=== PATIENT | male | born 1955 | race Native Hawaiian/Other Pacific Islander ===

== ENCOUNTER 2017-08-29 18:20 | Inpatient (IN) | payer MEDICARE, BC ==
[~2017-08-29] VITALS: Ht 190.5 cm; Wt 112.6 kg
[~2017-08-29 18:20] MED LIST: ANTACID650 MG PO; BAYER CHEWABLE81 MG PO; CARDIZEM CD240 MG PO; CARTIA XT240 M1; CARVEDILOL6.25 MG PO; CEFDINIR300 MG; COUMADIN 5 MG TA5 M1; COUMADIN 5 MG TA5 M1 PO; DILTIAZEM IV; DIOVAN 80 MG TA80 M1 PO; ENOXAPARIN150 MG/1 M SUBQ; HYDROXYZINE HCL50 MG; IMDUR 30 MG TAB30 M1 PO; LASIX 40 MG TAB40 M2; LASIX 40 MG TAB40 MG PO; LEVEMIR SUBQ; NITROGLYCERIN0.4 MG SL; NORCO 5-325 TA1 EACH; NORVASC 5 MG TAB5 MG PO; NOVOLOG100 UNIT/1 SUBQ; PRED FORTE 1% EY5 M1; REMERON15 MG PO; RENVELA800 MG PO
[2017-08-29 18:23] VITALS: BP 102/63
[2017-08-29] MEDS ORDERED: TOPROL XL100 MG PO (18:33)
--- NOTE | 2017-08-29 18:37 | NUR ---
PT STATES THAT WE NEED TO GET UPDATED MEDICATION LIST FROM FAMILY ONCE THEY ARRIVE.
[2017-08-29 19:47] LABS: ABSOLUTE BASOPHILS 0.1 thou/uL (0.0-0.2); ABSOLUTE EOSINOPHILS 0.2 thou/uL (0.0-0.7); ABSOLUTE MONOCYTES 0.3 thou/uL (0.0-1.2); ABSOLUTE NEUTROPHILS 2.2 thou/uL (1.6-8.1); BASOPHILS 1.5 %; HEMOGLOBIN 7.4 gm/dL (14.0-18.0); LYMPHOCYTES 27.2 %; MCH 35.1 pg (26.0-34.0); MCHC 33.7 g/dL (28.0-37.0); MCV 104.2 fL (80.0-100.0); MONOCYTES 7.8 %; MPV 10.7 fl. (7.2-11.1); NUCLEATED RBCS 0 /100WBC; POLYS 58.5 %; RBC 2.11 mil/uL (4.50-6.00); RDW-CV 17.6 % (10.5-14.5); WBC 3.8 thou/uL (4.0-11.0)
[2017-08-29 19:50] LABS: PLATELET COUNT* 36 thou/uL (150-400)
[2017-08-29 19:52] LABS: ANION GAP 14 mmol/L (7-16); BUN 49 mg/dL (7-18); CALCIUM 9.4 mg/dL (8.5-10.1); CHLORIDE 93 mmol/L (98-107); CO2 25 mmol/L (21-32); CREATININE 7.8 mg/dL (0.6-1.3); GLUCOSE 107 mg/dL (70-99); POTASSIUM 4.8 mmol/L (3.5-5.1); SODIUM 132 mmol/L (136-145)
[2017-08-29 19:55] LABS: ALBUMIN 3.3 g/dL (3.4-5.0); SGOT 12 U/L (15-37)
[2017-08-29 20:15] LABS: HYPOCHROMASIA 1+; INR 1.4; PLATELET ESTIMATE DECREASED; PROTIME 13.8 Seconds (9.20-11.50)
[2017-08-29 20:17] LABS: ANISOCYTOSIS 1+
[2017-08-29] MEDS ORDERED: LINEZOLID600 MG PO (20:32)
[2017-08-29] MEDS ORDERED: CARTIA XT120 M1 PO (20:32)
[2017-08-29] MEDS ORDERED: PREDNISONE 10 M10 MG PO (20:32)
[2017-08-29] MEDS ORDERED: ELIQUIS2.5 MG PO (20:33)
[2017-08-29 20:36] LABS: ALKALINE PHOSPHATASE 172 U/L (46-116); CK-MB MASS 0.7 ng/mL (<0.5-3.6); NT-PRO BRAIN NAT PEPTIDE > 35000 pg/mL (<300); SGPT 8 U/L (30-65); TOTAL BILIRUBIN 0.6 mg/dL (<0.1-1.0); TOTAL PROTEIN 6.5 g/dL (6.4-8.2); TROPONIN-I LEVEL <0.06 ng/mL (<0.06)
[2017-08-29] MEDS ORDERED: SODIUM BICARBO650 M3 PO (20:39)
[2017-08-29] MEDS ORDERED: TOPROL XL25 MG PO (20:40)
[2017-08-29] MEDS ORDERED: [UNRECOGNIZED DRUG - OTHER] PO (20:41)
[2017-08-29 23:01] VITALS: BP 100/61
[2017-08-29 23:19] VITALS: BP 99/66
[2017-08-30 04:05] VITALS: BP 104/67
--- NOTE | 2017-08-30 05:06 | NUR ---
Pt arrived to unit from ED at 2300. States he feels "whoozy." States he gets dialysis M, W, & F, and is due to have dialysis today. Also states he has been experiencing loss of vision in both eyes, but in particular the Rt eye. States he is scheduled for appointment with eye doctor today, but would like to have someone see him while he is here, if possible. States vision changes started happening about 3 days ago. Alert and oriented. BP 90's/60's. On 2L O2 per NC. Will continue to monitor.
[2017-08-30 08:00] VITALS: BP 99/62
[2017-08-30 08:17] LABS: ABSOLUTE BASOPHILS 0.1 thou/uL (0.0-0.2); ABSOLUTE EOSINOPHILS 0.3 thou/uL (0.0-0.7); ABSOLUTE LYMPHOCYTES 1.4 thou/uL (0.8-5.3); ABSOLUTE MONOCYTES 0.4 thou/uL (0.0-1.2); ABSOLUTE NEUTROPHILS 3.2 thou/uL (1.6-8.1); BASOPHILS 1.3 %; EOSINOPHILS 4.8 %; HEMATOCRIT 22.6 % (42.0-52.0); HEMOGLOBIN 7.8 gm/dL (14.0-18.0); LYMPHOCYTES 26.8 %; MCH 35.1 pg (26.0-34.0); MCHC 34.5 g/dL (28.0-37.0); MCV 101.8 fL (80.0-100.0); MONOCYTES 8.1 %; MPV 10.4 fl. (7.2-11.1); NUCLEATED RBCS 0 /100WBC; RBC 2.22 mil/uL (4.50-6.00); RDW-CV 17.6 % (10.5-14.5); WBC 5.3 thou/uL (4.0-11.0)
[2017-08-30 08:35] LABS: ALBUMIN 3.3 g/dL (3.4-5.0); CALCIUM 9.3 mg/dL (8.5-10.1); CREATININE 8.8 mg/dL (0.6-1.3); PLATELET COUNT* 42 thou/uL (150-400); TOTAL BILIRUBIN 0.8 mg/dL (<0.1-1.0); TOTAL PROTEIN 6.4 g/dL (6.4-8.2)
--- NOTE | 2017-08-30 10:29 | EKG ---
[place] [address] ELECTROCARDIOGRAM REPORT Name: JRKARINA Room: [address] ADM IN M.R.#: [id number] Admission: 08/29/17 Attend Phys: Marcelino Bal MD Discharge: Date of : 53 Report #: [id number] THIS REPORT FOR: //name// [facility] ED Test Date: 2017-08-29 Test Time: 18:25:50 Pat Name: KARINA NORRIS Department: Room: [facility] Gender: Option Trader: Jad THRASHER : 1955 Requested By: Javier Lynch Order Number: [id number] MD: Jeff Gordon Measurements Intervals [place] Rate: 96 P: DC: QRS: 28 QRSD: 101 T: 196 QT: 391 QTc: 495 Interpretive Statements Atrial fibrillation with ventricular escape beat Low voltage, extremity leads Repol abnrm suggests ischemia, anterolateral Compared to ECG 01/25/2014 23:07:47 Low QRS voltage now present Early repolarization now present Possible ischemia now present Prolonged QT interval no longer present Electronically Signed On 08-30-2017 10:29:13 EXTRUDING DEPARTMENT SUPERVISOR by Jeff Gordon [email or web address] <ELECTRONICALLY SIGNED> By: Jeff Gordon MD, FACC 08/30/17 1029 1825 1825 Jeff Gordon MD, FAC /EPI
--- NOTE | 2017-08-30 12:00 | NUR ---
RECEIVED REPORT. ASSSUMED CARE OF PT AT 0730. VSS. O2 SAT >90% ON 2L PER NC. CARDAIC MONITOR IN PLACE TRACING AFIB. AM ASSESSMENT AND VITALS COMPLETED CHARTED. PT DENIES PAIN OR DISCOMFORT. IV SALINE LOCKED. PT TO GO TO DIALYSIS THIS AFTERNOON. PT SHOWING POOR APPETITE AND ONLY WANTS TO DRINK BOOST SHAKES. AT BEDSIDE. PT REPOSITIONED IN THE BED FOR COMFORT. PT COMPLAINS OF DIFFICULTY SEEING OUT OF RIGHT EYE, STATES IT HAS BEEN GOING ON THE LAST 3 DAYS. LEFT CENTRAL LINE IN PLACE FOR HEMODIALYSIS. OLD RIGHT FISTULA NOTED. PATHCY, DRY SKIN AREAS NOTED TO BLE AND BUE. PT AWARE THAT UA IS NEEDED - PT STATES HE RARELY MAKES URINE. HIGH FALL RISK PRECAUTIONS IN PLACE. CALL LIGHT IS WITHIN REACH. PT INFORMED OF PLAN OF CARE - PT COMMUNICATES UNDERSTANDING. WILL CONTINUE TO MONITOR.
[2017-08-30 12:22] VITALS: BP 108/67
--- NOTE | 2017-08-30 13:58 | NUR ---
MET WITH PT AND TO DISCUSS HOME SITUATION/DC PLANNING. PT LIVES WITH , SON AND DTR. HE IS FAIRLY INDEPENDENT. USES WALKER OR CANE AND HAS NOCTURAL O2 THRU [facility], CONFIRMED WITH NERY/ABBIE GAMA. PT GOES TO DIALYSIS AT [facility] AT [place] MWF AM. SON TAKES PT AND PICKS HIM UP. PT HAS HAD HH INT [facility] PAT. PT STATES HE IS WORKING ON GETTING A NEW O2 PROVIDER AND HAS BEEN TALKING WITH [employer] BUT THEY NEED A 'SCRIPT.' WILL FOLLOW [facility] [phone] FAX [phone] [facility] [phone] FAX [phone]
--- NOTE | 2017-08-30 19:00 | NUR ---
PT ARRIVED BACK FROM DIALYSIS AT 1800. VSS. O2 SAT >90% ON 2L PER NC. BRANCH OPERATION EVALUATION MANAGER IN PLACE WITH NO CHANGES THIS SHIFT. PT STATES "I FEEL MUCH BETTER AFTER DIALYSIS". PT ABLE TO EAT DINNER WITHOUT ISSUE. REMAINS AT BEDSIDE, AND DAUGHTER. PT DENIES PAIN OR DISCOMFORT. IV SALINE LOCKED. RECORDS REQUESTED FROM HIS ROUTINE DIALYSIS CENTER PER ORDERS. PT REPOSITIONED IN THE BED FOR COMFORT. PT SLOWLY PROGESSING TOWARD GOALS. HIGH FALL RISK PRECAUTIONS IN PLACE. CALL LIGHT IS WITHIN REACH. HOURLY ROUNDING PERFORMED.
[2017-08-31] VITALS: BP 98/61
[2017-08-31 04:00] VITALS: BP 113/68
[2017-08-31 04:40] LABS: ALBUMIN 3.4 g/dL (3.4-5.0); CALCIUM 9.1 mg/dL (8.5-10.1); MAGNESIUM 2.2 mg/dL (1.8-2.4); POTASSIUM 5.4 mmol/L (3.5-5.1); TOTAL BILIRUBIN 0.9 mg/dL (<0.1-1.0); TOTAL PROTEIN 6.4 g/dL (6.4-8.2)
[2017-08-31 04:46] LABS: CREATININE 5.7 mg/dL (0.6-1.3)
[2017-08-31 04:57] LABS: HEMATOCRIT 21.8 % (42.0-52.0); HEMOGLOBIN 7.5 gm/dL (14.0-18.0); MCH 35.5 pg (26.0-34.0); MCHC 34.4 g/dL (28.0-37.0); MCV 103.2 fL (80.0-100.0); MPV 10.4 fl. (7.2-11.1); RBC 2.11 mil/uL (4.50-6.00); RDW-CV 17.6 % (10.5-14.5); WBC 4.7 thou/uL (4.0-11.0)
--- NOTE | 2017-08-31 05:45 | NUR ---
PATIENT SLEPT MOST OF THE NIGHT. IV REMAINS SALINE LOCKED. PATIENT HAD NO COMPLAINTS OF PAIN. BED ALARM REMAINS ON FOR PATIENT SAEFTY. WILL CONTINUE TO MONITOR.
--- NOTE | 2017-08-31 08:30 | NUR ---
RECEIVED REPORT. ASSUMED CARE OF PT AT 0730. VSS. CARDIAC MOTNIORING IN PLACE A-PACED WITH UNDERLYING AFIB. AM ASSESSMENT AND VITALS COMPLETED CHARTED. PT ALERT AND ORIENTED. PT ON RA. PT WEARS HOME O2 WHEN HE SLEEPS. PT DENIES ANY COMPLAITNS OF PAIN OR DISCOMFORT THIS AM. PT IS SITTING UP IN CHAIR. PT'S BP LOW-HOLDING BP MEDS. PT REPORTS WANTING TO GO HOME TODAY. INFORMED PT OF PLAN OF CARE. PT COMMUNICATES UNDERSTANDING. CALL LIGHT IS WITHIN REACH. WILL CONTINUE TO MONITOR FOR DURATION OF SHIFT.
[2017-08-31 08:31] VITALS: BP 74/36
[2017-08-31 11:33] VITALS: BP 105/60
[2017-08-31 15:45] VITALS: BP 117/71
--- NOTE | 2017-08-31 15:54 | NUR ---
CONTINUE TO FOLLOW, MET WITH PT AND DTR. PT STATES FEELING IMPROVED TODAY. 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 DTR TO TRY TO GET NUMBER. PT DENIES ANY NEEDS AT DC, DOESN'T THINK HE NEEDS HH, PLANS TO RETURN HOME WITH FAMILY. WILL FOLLOW
--- NOTE | 2017-08-31 16:02 | 2DMMODE ---
[place] [address] 2 D/M-MODE ECHOCARDIOGRAM Name: KARINA NORRIS Room: [address] IN [facility]#: [id number] Admission: 08/29/17 Attend Phys: Marcelino Bal, Discharge: Date of : 53 Date of Service: 08/31/17 1602 Report #: [id number] THIS REPORT FOR: //name// APPROVED REPORT Study performed: 08/31/2017 15:07:30 EXAM: Comprehensive 2D, Doppler, and color-flow Echocardiogram Patient Location: In-Patient Room #: [facility] Status: routine BSA: 2.29 HR: 94 bpm BP: 105/60 mmHg Other Information Study Quality: Good Indications Dyspnea Chest Pain 2D Dimensions LVEF(%): 26.51 (>50%) IVSd: 10.86 (7-11mm) LVOT Diam: 24.94 (18-24mm) LVDd: 62.44 mm PWd: 11.30 (7-11mm) Ascending Ao: 33.32 (22-36mm) LVDs: 54.58 (25-40mm) Aortic Root: 32.99 mm Healy's LVEF: 26.51 % Volumes Left Atrial Volume (Systole) LA ESV Index: 59.50 mL/m2 Aortic Valve AoV Peak Feliberto.: 1.44 m/s AO Peak Gr.: 8.29 mmHg LVOT Max P.75 mmHg AO Mean Gr.: 5.07 mmHg LVOT Mean P.31 mmHg LVOT Max V: 0.83 m/s AO V2 VTI: 20.37 cm LVOT Mean V: 0.53 m/s MIGUEL ANGEL (VTI): 2.76 cm2 LVOT V1 VTI: 11.50 cm Mitral Valve MV Decel. Time: 101.45 [place] [address] 2 D/M-MODE ECHOCARDIOGRAM Name: KARINA NORRIS Room: [address] IN ..#: [id number] Admission: 08/29/17 Attend Phys: Marcelino Bal, Discharge: Date of : 53 Date of Service: 08/31/17 1602 Report #: [id number] MV PHT: 29.42 ms MVA (PHT): 7.48 cm2 TDI Medial E' Feliberto.: 0.09 m/s Lateral E' Feliberto.: 0.11 m/s Pulmonary Valve PV Peak Feliberto.: 1.77 m/s PV Peak Gr.: 12.56 mmHg Tricuspid Valve TR Peak Gr.: 35.20 mmHg RVSP: 40.00 mmHg Left Ventricle Left ventricle is moderately dilated. There is severe global hypokinesis. Mild concentric left ventricular hypertrophy. Left ventricular systolic function is severely decreased. LVEF is 25-30%. This study is not technically sufficient to allow evaluation of the LV diastolic function due to atrial fibrillation. Right Ventricle Right ventricle is moderately dilated. The right ventricular systolic function is normal. Atria Left atrium is severely dilated. Right atrium is moderately dilated. Aortic Valve Moderate aortic valve sclerosis. No aortic regurgitation is present. Moderate aortic stenosis. Mitral Valve The mitral valve is normal in structure. Moderate mitral regurgitation. No evidence of mitral valve stenosis. Tricuspid Valve The tricuspid valve is normal in structure. Moderate tricuspid regurgitation. The RVSP is 40-45 mmHg. Pulmonic Valve The pulmonary valve is normal in structure. Mild to moderate pulmonic regurgitation. Great Vessels The aortic root is normal in size[place] [address] 2 D/M-MODE ECHOCARDIOGRAM Name: KARINA NORRIS Room: [address]#: [id number] Admission: 08/29/17 Attend Phys: Marcelino Bal, Discharge: Date of : 53 Date of Service: 08/31/17 1602 Report #: [id number] visualized. Pericardium There is a small pericardial effusion located mostly posteriorly with no evidence of tamponade. <Conclusion> Left ventricle is moderately dilated. Mild concentric left ventricular hypertrophy. Left ventricular systolic function is severely decreased. LVEF is 25-30%. This study is not technically sufficient to allow evaluation of the LV diastolic function due to atrial fibrillation. There is severe global hypokinesis. Right ventricle is moderately dilated. Left atrium is severely dilated. Right atrium is moderately dilated. Moderate aortic valve sclerosis. Moderate aortic stenosis. Moderate mitral regurgitation. Moderate tricuspid regurgitation. The RVSP is 40-45 mmHg. There is a small pericardial effusion located mostly posteriorly with no evidence of tamponade. <ELECTRONICALLY SIGNED> By: Sam Verde MD, FACC 08/31/17 1602 160 160 Sam Verde MD, FACC /INF
--- NOTE | 2017-08-31 16:55 | NUR ---
I have reviewed the documentation by YIN GUO from 08/31/17 to 08/31/17 and I concur with it. JANELLE CABRAL
--- NOTE | 2017-08-31 18:26 | NUR ---
VSS. CARDIAC MONTIORIN GIN PLACE AFIB/APACED WITH RATE IN THE 100-120'S. ONETIME DOSE OF DIG GIVEN THIS AFTERNOON PER CARDIO. NOTIFIED DR. LEONARDO OF PT'S RATES CONTINUING TO BE IN THE 110-120'S THIS EVENING. PT SOMEWHAT PROGRESSING TOWARDS GOALS. PT HAS VISION PROBLEMS AND HAS AN EYE APPOINTMENT TOMORROW OUTPATIENT FOR EVALUATION. IV SALINE LOCKED. PT WAS UNABLE TO WORK WITH PHYSICAL THERAPY THIS SHIFT DUE TO DIZZINESS. PT'S BLOOD PRESSURE AND ORTHOSTATICS CHECKED BY PHYSICAL THERAPY PERSONNEL AND WAS NEGATIVE AT THIS TIME. PT IS UP WITH ASSISTANCE AND CANE TO BATHROOM. PLAN TO DISCHARGE PT TOMORROW AFTER DIALYSIS PER DR. ZEPEDA. PT HAS HAD NO COMPLAIINTS OF PAIN OR DISCOMFORT THIS SHIFT. PT INFORMED OF PLAN OF CARE. CALL LIGHT IS WITHIN REACH. WILL CONTINUE TO MONITOR FOR DURATION OF SHIFT.
[2017-08-31 20:00] VITALS: BP 115/70
[2017-09-01 01:16] VITALS: BP 108/52
[2017-09-01 04:16] VITALS: BP 99/64
--- NOTE | 2017-09-01 05:10 | NUR ---
ASSUMED CARE OF PT AT 1900 PT ALERT AND ORIENTED X4. VS AND ASSESSMENT STABLE AND PT A-PACED ON THE MONITOR.PT DENIED ANY COMPLAINTS AND SLEPT THROUGH THE NIGHT WILL MONITOR
[2017-09-01 10:08] LABS: HEMATOCRIT 20.2 % (42.0-52.0); MCHC 33.6 g/dL (28.0-37.0); MCV 104.3 fL (80.0-100.0); MPV 10.2 fl. (7.2-11.1); RBC 1.94 mil/uL (4.50-6.00); RDW-CV 17.8 % (10.5-14.5); WBC 2.9 thou/uL (4.0-11.0)
[2017-09-01 10:11] LABS: HEMOGLOBIN 6.8 gm/dL (14.0-18.0)
[2017-09-01 10:54] LABS: HEMATOCRIT 20.6 % (42.0-52.0); MCV 105.9 fL (80.0-100.0); RBC 1.94 mil/uL (4.50-6.00); RDW-CV 17.5 % (10.5-14.5); WBC 2.8 thou/uL (4.0-11.0)
[2017-09-01 10:56] LABS: HEMOGLOBIN 6.8 gm/dL (14.0-18.0)
[2017-09-01 11:10] VITALS: BP 93/57
[2017-09-01 14:35] VITALS: BP 105/68; BP 110/62; BP 97/64; BP 98/66
[2017-09-01 16:22] VITALS: BP 110/92
--- NOTE | 2017-09-01 18:35 | NUR ---
ASSUMED RESPONSIBILITY OF PT AT 0745. PT CONTINUES TO BE A&O WITH A FLAT AFFECT AND POOR APPETITE. PT DENIES ANY C/O PAIN OR DISTRESS. PT WENT TO DIALYSIS THIS MORNING. WHEN PT RETURNED TO THE FLOOR 1 UNIT OF LUCEOREDUCED PACKED RED BLOOD CELLS FOR A LOW HGB. PT HAD NO ADVERSE REACTION TO THE BLOOD INFUSION AND VS WERE CLOSELY MONITORED. PT CURRENTLY RESTING IN BED WITH NO COMPLAINTS. NURSING WILL CONTINUE TO MONITOR.
[2017-09-01 20:00] VITALS: BP 118/65
[2017-09-02] VITALS: BP 121/62
[2017-09-02 04:00] VITALS: BP 110/71
--- NOTE | 2017-09-02 04:08 | NUR ---
ASSUMED PT CARE AT 1930, PT IS A&OX4, PT DENIES ANY PAIN OR NEEDS AT THIS TIME. PT IS TRACING AVPACED ON THE MONITOR, WITH UNDERLYING AFIB. PT IS ON RAA SATTING MID TO HIGH 90'S. PT SLEPT WELL THOUGHOUT THE NIGHT. BED IN LOW POSITION, CALL LIGHT IN REACH, HOURLY ROUNDING COMPLETED FOR PT SAFETY.
[2017-09-02 05:38] LABS: HEMATOCRIT 25.6 % (42.0-52.0); HEMOGLOBIN 8.6 gm/dL (14.0-18.0); MCH 34.7 pg (26.0-34.0); MCHC 33.6 g/dL (28.0-37.0); MCV 103.3 fL (80.0-100.0); MPV 10.2 fl. (7.2-11.1); RBC 2.48 mil/uL (4.50-6.00); WBC 2.6 thou/uL (4.0-11.0)
[2017-09-02 05:48] LABS: ALBUMIN 3.4 g/dL (3.4-5.0); CALCIUM 9.4 mg/dL (8.5-10.1); CREATININE 5.8 mg/dL (0.6-1.3); MAGNESIUM 2.2 mg/dL (1.8-2.4); POTASSIUM 5.2 mmol/L (3.5-5.1)
[2017-09-02 06:07] LABS: PHOSPHORUS* 5.2 mg/dL (2.5-4.9)
[2017-09-02 08:00] VITALS: BP 106/60
--- NOTE | 2017-09-02 08:30 | NUR ---
RECEIVED REPORT. ASSUMED CARE OF PT AT 0730. VSS. O2 SAT 99% ON ROOM AIR. PT A&O X4. FUR FARMER IN PLACE, VPACED. AM ASSESSMENT AND VITALS COMPLETED CHARTED. IV SALINE LOCKED. TEMPORARY DIALYSIS CATHETER IN PLACE, LEFT CHEST. PT DENIES PAIN OR DISCOMFORT AT THIS TIME - WANTS TO GO HOME. PT INFORMED OF PLAN OF CARE, PT COMMUNICATES UNDERSTANDING. PT APPEARS IN GOOD SPIRITS TODAY. ATE 50% OF BREAKFAST. HIGH FALL RISK PRECAUTIONS ARE IN PLACE. CALL LIGHT IS WITHIN REACH. WILL CONTINUE TO MONITOR.
[2017-09-02] MEDS ORDERED: MIDODRINE HCL 55 M1 PO (11:29)
[2017-09-02] MEDS ORDERED: FOLIC ACID1 MG PO (11:29)
[2017-09-02] MEDS ORDERED: LANOXIN 0.120.125 M1 PO (11:29)
[2017-09-02] MEDS ORDERED: LEVAQUIN 750 M750 MG PO (11:29)
[2017-09-02 11:51] VITALS: BP 107/63
--- NOTE | 2017-09-02 13:40 | NUR ---
CM SPOKE TO THE PATIENT TO DISCUSS DISCHARGE PLANNING NEEDS AND HIS DISCHARGE HOME TODAY, AND ANY QUESTIONS OR CONCERNS THAT HE MAY HAVE. PATIENT HAS NO QUESTIONS OR CONCERNS AT THIS TIME. CM SPOKE TO LINDSEY AT [facility] TO INFORM THAT THE PATIENT WOULD DISCHARGE TODAY, AND FAXED THE PATIENTS FACESHEET, H&P, AND FLOW SHEETS. PATIENT PROVIDED CM WITH THE CONTACT INFO FOR [employer]. CM CALLED AND LEFT A MESSAGE AT THAT NUMBER TO RETURN CALL TO DISCUSS PATIENTS NEED FOR PORTABLE O2. CM WILL REMAIN AVAILABLE TO ASSIST AND FOLLOW NEEDED. [employer] PHONE: [phone]
[2017-09-02 14:03] VITALS: BP 107/63
--- NOTE | 2017-09-02 15:15 | NUR ---
DISCHARGE ORDERS RECEIVED. DISCHARGE COMPLETED DOCUMENTED. DISCHARGE SUMMARY AND CARE NOTES GONE OVER WITH THE PT. PT COMMUNCIATES UNDERSTANDING. PT AWARE THAT SCRIPTS FOR NEW MEDICATIONS WERWE SENT TO HIS PHARMACY, [facility]. PT AWARE OF ALL F/U APPOINTMENTS. PT AWARE TO RESUME NORMAL DIALYSIS ROUTINE TOMORROW. CARE NOTES GIVEN. IV AND POLISHING PAD MOUNTER REMOVED. PT VSS AT TIME OF DC. PT ATE LUNCH PRIOR TO DC. AND GRANDCHILD AT BEDSIDE AT TIME OF DC. ALL BELONGINGS GATHERED AND SENT WITH THE PT. PT LEFT UNIT IN WC WITH NURSING STAFF. PT LEFT UNIT IN CAR WITH .
--- NOTE | 2017-09-06 08:34 | CON ---
[address] [address] CONSULTATION Name: GIOVANNAKARINA MORELAND Room: [address] IN .R.#: [id number] Admission: 08/29/17 Attend Phys: Marcelino Bal MD Discharge: 09/02/17 Date of : 53 Report #: [id number] THIS REPORT FOR: //name// CC: Marcelino Grider DO INDICATION: Hypotension and cardiomyopathy. HISTORY OF PRESENT ILLNESS: The patient is a 62-year-old gentleman with past cardiac history of cardiac arrest secondary to ventricular tachycardia in 2011. He is status post ICD placement for secondary prevention. He had a second episode that sounds like an arrhythmic event last year prior to a proposed vascular surgery that was postponed. He has end-stage renal disease and is on dialysis Wednesday, Wednesday and Wednesday. He was admitted to the hospital here for treatment after having a fall at home. He states that when he was admitted, he felt oozy and lightheaded. During this hospitalization, he has been noted to be moderately hypotensive gradually leading to withholding his metoprolol and now diltiazem. Presently, he is on no rate controlling medications. Off these medicines, his heart rate has begun to accelerate. Presently, he is in the 120s. He is not significantly symptomatic with his fast heart rate. He has chronic atrial fibrillation. He is anticoagulated with Eliquis and having no significant bleeding problems. He does dialyze Wednesday, Wednesday and Wednesday and therefore dialyzed yesterday. Blood pressure earlier today was 74/36. PAST MEDICAL HISTORY: 1. Chronic atrial fibrillation. 2. Ventricular tachycardia arrest. 3. Status post ICD placement for primary prevention. 4. Nonischemic cardiomyopathy. 5. Some form of "valve infection." 6. Chronic renal insufficiency, on dialysis. 7. Heart failure. 8. Diabetes. PAST SURGICAL HISTORY: 1. Fistulas for dialysis. 2. Cataract surgery. 3. ICD implant. FAMILY HISTORY: Positive for sudden , the patient's mother at 67 suddenly. The patient's sister at 28 with cardiomyopathy. SOCIAL HISTORY: The patient is . He does not smoke. [place] [address] CONSULTATION Name: KARINA NORRIS Room: [address]#: [id number] Admission: 08/29/17 Attend Phys: Marcelino Bal MD Discharge: 09/02/17 Date of : 53 Report #: [id number] ALLERGIES: VANCOMYCIN. HOME MEDICATIONS: Eliquis 2.5 mg p.o. b.i.d., diltiazem 120 mg p.o. b.i.d., insulin sliding scale. Linezolid 600 mg b.i.d., metoprolol succinate 25 mg daily, Nitrostat p.r.n., prednisone 10 mg daily, sodium bicarbonate tablets 1 b.i.d. Provigil 1 tablet daily. REVIEW OF SYSTEMS: A 14-point review of systems positive for COPD, atypical chest discomfort, dyspnea, orthopnea, paroxysmal nocturnal dyspnea. He also reports diabetes. He has a history of possible jaundice remotely. He reports some hematuria remotely. He has anemia. He has medical allergies as outlined above. He reports eczema and psoriasis. He wears glasses. Otherwise, 14-point review of systems was unremarkable. PHYSICAL EXAMINATION: VITAL SIGNS: Blood pressure currently 105/60, pulse in the 120s. GENERAL: This is a pleasant gentleman who does not appear to be in distress. Mood and affect appropriate. HEENT: Head normocephalic, atraumatic. Extraocular muscles intact. Mucous membranes are moist. NECK: Shows no jugular venous distention. There are no carotid bruits. CHEST: Revealed diminished breath sounds without wheezes or rales. CARDIOVASCULAR: Reveals a tachycardic rate that is irregularly irregular. I do not appreciate obvious murmur or gallop. ABDOMEN: Reveals normal bowel sounds. The abdomen is soft and nontender. EXTREMITIES: Show some psoriatic plaquing throughout. There is no edema. SKIN: Dry. LABORATORY DATA: A 12-lead EKG shows sinus rhythm with left axis deviation. I do not appreciate any pathologic Q-waves. Echocardiogram has been ordered and is pending. IMPRESSION AND RECOMMENDATIONS: 1. Atrial fibrillation, now with rapid ventricular response. He has hypotension, this is likely multifactorial in nature. At this point in time, I would like to add very low dose digoxin with a loading dose for improved rate control. We will resume metoprolol if tolerated following his blood pressure. 2. Cardiomyopathy, etiology not clear. Outside records have been requested. The patient is not on any heart failure medications at this time. We will consider resuming as he tolerates. 3. Hypotension, multifactorial, could be due to medications for his atrial fibrillation as well as dialysis. Medications currently held. Blood pressure has come up from this morning. We will follow clinically. He did get a single dose of midodrine. This may be helpful predialysis. [place] [address] [place] [address] CONSULTATION Name: KARINA NORRIS Room: [address]#: [id number] Admission: 08/29/17 Attend Phys: Marcelino Bal MD Discharge: 09/02/17 Date of : 53 Report #: [id number] 4. History of ventricular tachycardia arrest, status post ICD placement, presently stable. ICD is in place. He is not having any recent arrhythmias. <ELECTRONICALLY SIGNED> By: Sam Verde MD, FACC 09/06/17 0834 1339 1540Micmarek Verde MD, FACC /nt
--- NOTE | 2017-09-08 15:02 | CON ---
[address] [address] CONSULTATION Name: GIOVANNAKARINA MORELAND Room: [address] IN M.R.#: [id number] Admission: 08/29/17 Attend Phys: Marcelino Bal MD Discharge: 09/02/17 Date of : 53 Report #: [id number] THIS REPORT FOR: //name// CC: Marcelino Das Cheo CONSULTING PHYSICIAN: Dr. Marcelino Bal. REASON FOR CONSULTATION: End-stage kidney disease. HISTORY OF PRESENT ILLNESS: The patient is a 62-year-old gentleman with history of end-stage kidney disease, on hemodialysis Wednesday-Wednesday -Wednesday, admitted after he sustained a fall and was somewhat confused and had some gait instability. He is feeling much better now. He is awake. He is alert. He is seen on dialysis. He is tolerating the treatment well. He was noted to have low hemoglobin and low platelets. Hematology/Oncology has been consulted to see him regarding that. He otherwise does not have any complaints. He appears to be comfortable on his dialysis treatment. REVIEW OF SYSTEMS: Constitutional, psych, heme, eyes, ENT, respiratory, cardiac, GI, , endocrine, all negative except as documented above. PAST MEDICAL HISTORY: 1. End-stage kidney disease, on hemodialysis Wednesday, Wednesday and Wednesday at [facility]. 2. History of cardiac arrest in 2011 and ventricular tachycardic. 3. History of atrial fibrillation. 4. Hypertension. 5. Diabetes. 6. History of staph infection, had prolonged hospitalizations at [facility]. I do not have access to those records, but he may have also had endocarditis at that time. SOCIAL HISTORY: No tobacco. FAMILY HISTORY: Not pertinent in this 62-year-old gentleman. PHYSICAL EXAMINATION: VITAL SIGNS: Blood pressure 108/67, pulse is in the 90s, respirations 18 and temperature 37.2. GENERAL: No acute distress. EYES: Extraocular movements intact. EARS: Externally normal. CARDIOVASCULAR: Regular rate. LUNGS: Clear to auscultation. ABDOMEN: Soft. MUSCULOSKELETAL: [place] [address] CONSULTATION Name: KARINA NORRIS [place] Room: [address]#: [id number] Admission: 08/29/17 Attend Phys: Marcelino Bal MD Discharge: 09/02/17 Date of : 53 Report #: [id number] PSYCHIATRIC: Awake, alert. LABORATORY DATA: White cell count 5.3, hemoglobin 7.8, platelets 42/36. Sodium 132, potassium 5, chloride 93, bicarbonate 22, BUN 58, creatinine 8.8, glucose 87 and calcium 9.3. ASSESSMENT: 1. End-stage kidney disease, hemodialysis Wednesday, Wednesday and Wednesday. 2. Hypertension. 3. Mild hyponatremia. 4. Hypotension. PLAN: 1. The patient seen on dialysis, tolerating treatment well. We will continue to maintain dialysis Wednesday, Wednesday and Wednesday while here. 2. We will ultrafiltrate as tolerated. Blood pressures have been on the low side, may not be accurate. He has old access sites, which may be leading to false readings. We will give midodrine with his dialysis, so that he can ultrafilter. He is also on diltiazem, which may be playing a role as well. 3. Anemia. Continue DARYN therapy. Heme/Onc is following. 4. Thrombocytopenia. Heme/Onc is following. 5. Hyponatremia. We will do UF as tolerated with dialysis. Thank you for requesting my opinion in the care and management of this patient. We will follow up for dialysis needs. <ELECTRONICALLY SIGNED> By: Jose Luis Flowers MD 09/08/17 1502 1606 [id number] Tristan MD /nt
== END 2017-09-02 14:56 | disposition home health service (06) | DRG 177 ==
LOC: M.ERS 18:20 → M.2W 20:14 → M.TBA-ER 20:14 → M.2W 23:20
PROVIDERS: Family Medicine; Internal Medicine; ADMIT Internal Medicine
DX: J15.6 Pneumonia due to other Gram-negative bacteria (principal); G93.41 Metabolic encephalopathy; N18.6 End stage renal disease; E87.1 Hypo-osmolality and hyponatremia; R65.10 Systemic inflammatory response syndrome (SIRS) of non-infectious origin without acute organ dysfunction; I42.8 Other cardiomyopathies; D61.818 Other pancytopenia; I13.0 Hypertensive heart and chronic kidney disease with heart failure and stage 1 through stage 4 chronic kidney disease, or unspecified chronic kidney disease; I95.9 Hypotension, unspecified; I48.2 Chronic atrial fibrillation; I50.9 Heart failure, unspecified; D64.9 Anemia, unspecified; E11.22 Type 2 diabetes mellitus with diabetic chronic kidney disease; E53.8 Deficiency of other specified B group vitamins; Z99.2 Dependence on renal dialysis; Z98.49 Cataract extraction status, unspecified eye; Z88.1 Allergy status to other antibiotic agents; Z82.49 Family history of ischemic heart disease and other diseases of the circulatory system; Z79.899 Other long term (current) drug therapy

== ENCOUNTER 2017-09-08 13:20 | Inpatient (IN) | payer MEDICARE, BC ==
[~2017-09-08] VITALS: Ht 190.5 cm; Wt 119.7 kg
[~2017-09-08 13:20] MED LIST changes: +CARTIA XT120 M1 PO; +ELIQUIS2.5 MG PO; +FOLIC ACID1 MG PO; +LANOXIN 0.120.125 M1 PO; +LEVAQUIN 750 M750 MG PO; +LINEZOLID600 MG PO; +MIDODRINE HCL 55 M1 PO; +PREDNISONE 10 M10 MG PO; +SODIUM BICARBO650 M3 PO; +TOPROL XL100 MG PO; +TOPROL XL25 MG PO; +[UNRECOGNIZED DRUG - OTHER] PO
[2017-09-08 13:24] VITALS: BP 91/53
[2017-09-08 13:48] LABS: HEMATOCRIT 27.3 % (42.0-52.0); HEMOGLOBIN 8.4 gm/dL (14.0-18.0); MCH 34.7 pg (26.0-34.0); MCHC 30.7 g/dL (28.0-37.0); MCV 112.9 fL (80.0-100.0); NUCLEATED RBCS 1 /100WBC; RBC 2.42 mil/uL (4.50-6.00); RDW-CV 19.6 % (10.5-14.5); WBC 8.2 thou/uL (4.0-11.0)
[2017-09-08 13:51] LABS: ANION GAP 36 mmol/L (7-16); BUN 110 mg/dL (7-18); CALCIUM 9.2 mg/dL (8.5-10.1); CHLORIDE 90 mmol/L (98-107); CREATININE 12.7 mg/dL (0.6-1.3); GLUCOSE 281 mg/dL (70-99); POTASSIUM 5.3 mmol/L (3.5-5.1); SODIUM 136 mmol/L (136-145)
[2017-09-08 13:52] LABS: APTT 59.7 Seconds (25.0-31.3); INR 2.3; PROTIME 21.9 Seconds (9.20-11.50)
[2017-09-08 13:53] LABS: CO2 10 mmol/L (21-32)
[2017-09-08 14:02] LABS: ALBUMIN 3.4 g/dL (3.4-5.0); ALKALINE PHOSPHATASE 149 U/L (46-116); SGOT 476 U/L (15-37); SGPT 173 U/L (30-65); TOTAL BILIRUBIN 0.8 mg/dL (<0.1-1.0); TOTAL PROTEIN 6.6 g/dL (6.4-8.2)
[2017-09-08 14:03] LABS: NT-PRO BRAIN NAT PEPTIDE > 35000 pg/mL (<300)
[2017-09-08 14:24] LABS: ABSOLUTE EOSINOPHILS 0.1 thou/uL (0.0-0.7); ABSOLUTE LYMPHOCYTES 0.9 thou/uL (0.8-5.3); ABSOLUTE MONOCYTES 0.9 thou/uL (0.0-1.2); ABSOLUTE NEUTROPHILS 6.3 thou/uL (1.6-8.1); ANISOCYTOSIS 1+; ATYPICAL LYMPHS 2 %; HYPOCHROMASIA 2+; MACROCYTES 2+; PLATELET ESTIMATE DECREASED
[2017-09-08 14:25] LABS: MPV 12.1 fl. (7.2-11.1); PLATELET COUNT* 54 thou/uL (150-400)
[2017-09-08 15:14] VITALS: BP 91/60
[2017-09-08 15:26] LABS: PCO2 20.1 mmHg (35.0-45.0); PO2 75.9 mmHg (75.0-100.0)
[2017-09-08 15:30] LABS: pH 6.947 (7.340-7.450)
[2017-09-08 15:31] LABS: HCO3 4.3 mmol/L (22.0-26.0)
[2017-09-08 15:38] VITALS: BP 107/63
[2017-09-08 21:25] VITALS: BP 86/50
[2017-09-09 00:01] VITALS: BP 83/44
[2017-09-09 04:00] VITALS: BP 72/40
[2017-09-09 04:43] VITALS: BP 98/47
[2017-09-09 08:00] VITALS: BP 97/35
[2017-09-09 10:40] LABS: ABSOLUTE EOSINOPHILS 0.1 thou/uL (0.0-0.7); ABSOLUTE LYMPHOCYTES 0.5 thou/uL (0.8-5.3); ABSOLUTE MONOCYTES 0.6 thou/uL (0.0-1.2); ABSOLUTE NEUTROPHILS 4.7 thou/uL (1.6-8.1); BASOPHILS 0.5 %; EOSINOPHILS 1.3 %; HEMATOCRIT 24.1 % (42.0-52.0); HEMOGLOBIN 8.1 gm/dL (14.0-18.0); MCH 34.4 pg (26.0-34.0); MCHC 33.4 g/dL (28.0-37.0); MONOCYTES 9.5 %; MPV 10.4 fl. (7.2-11.1); NUCLEATED RBCS 0 /100WBC; POLYS 80.7 %; RBC 2.34 mil/uL (4.50-6.00); RDW-CV 18.7 % (10.5-14.5); WBC 5.9 thou/uL (4.0-11.0)
[2017-09-09 10:49] LABS: PLATELET COUNT* 34 thou/uL (150-400)
[2017-09-09 11:04] LABS: ALBUMIN 3.1 g/dL (3.4-5.0); CALCIUM 8.7 mg/dL (8.5-10.1); MAGNESIUM 2.4 mg/dL (1.8-2.4); POTASSIUM 4.8 mmol/L (3.5-5.1); TOTAL BILIRUBIN 0.9 mg/dL (<0.1-1.0)
[2017-09-09 11:20] LABS: CREATININE 7.8 mg/dL (0.6-1.3)
[2017-09-09 11:55] VITALS: BP 111/42
--- NOTE | 2017-09-09 14:31 | EKG ---
[place] [address] ELECTROCARDIOGRAM REPORT Name: GIOVANNAKARINA MORELAND Room: [address] ADM [place] [facility].#: [id number] Admission: 09/08/17 Attend Phys: Sami Kumar MD Discharge: Date of : 53 Report #: [id number] THIS REPORT FOR: //name// [facility] ED Test Date: 2017-09-08 Test Time: 13:40:07 Pat Name: KARINA NORRIS Department: Room: [facility] Gender: Photographer Motion Picture: Jad THRASHER : 1955 Requested By: Javier Lynch Order Number: [id number] MD: Jeff Gordon Measurements Intervals [place] Rate: 79 P: [place]: QRS: 44 QRSD: 116 T: 199 QT: 380 QTc: 436 Interpretive Statements Atrial fibrillation with ventricular paced beat Low voltage, extremity and precordial leads LBBB Compared to ECG 08/29/2017 18:25:50 no change Electronically Signed On 09-09-2017 14:30:59 NITRO MAN by Jeff Gordon [email or web address] <ELECTRONICALLY SIGNED> By: Jeff Gordon MD, [facility] 09/09/17 1430 1340 1340 Jeff Gordon MD, [facility] /EPI
[2017-09-09 21:04] VITALS: BP 103/52
[2017-09-10] VITALS: BP 93/57
[2017-09-10 04:00] VITALS: BP 81/58
[2017-09-10 06:36] LABS: CALCIUM 8.9 mg/dL (8.5-10.1); POTASSIUM 4.6 mmol/L (3.5-5.1)
[2017-09-10 08:00] VITALS: BP 81/56
[2017-09-10 12:00] VITALS: BP 124/71
[2017-09-10 16:00] VITALS: BP 142/67
[2017-09-10 20:30] VITALS: BP 140/80
[2017-09-11 00:26] VITALS: BP 141/58
[2017-09-11 03:14] LABS: HEPATITIS B SURFACE AG Negative (Negative)
[2017-09-11 04:27] VITALS: BP 129/60
[2017-09-11 05:58] LABS: MCH 34.3 pg (26.0-34.0); MCV 100.8 fL (80.0-100.0); MPV 9.4 fl. (7.2-11.1); RBC 1.97 mil/uL (4.50-6.00); RDW-CV 18.4 % (10.5-14.5); WBC 4.4 thou/uL (4.0-11.0)
[2017-09-11 06:19] LABS: HEMATOCRIT 19.8 % (42.0-52.0); HEMOGLOBIN 6.7 gm/dL (14.0-18.0)
[2017-09-11 06:30] LABS: ALBUMIN 2.7 g/dL (3.4-5.0); CALCIUM 8.6 mg/dL (8.5-10.1); CREATININE 4.4 mg/dL (0.6-1.3); MAGNESIUM 2.1 mg/dL (1.8-2.4); POTASSIUM 4.6 mmol/L (3.5-5.1); TOTAL BILIRUBIN 1.2 mg/dL (<0.1-1.0); TOTAL PROTEIN 5.5 g/dL (6.4-8.2)
[2017-09-11 08:00] VITALS: BP 138/67
[2017-09-11 10:38] VITALS: BP 140/61; BP 140/68; BP 145/74; BP 146/70; BP 146/76
[2017-09-11 16:00] VITALS: BP 153/46
[2017-09-11 20:00] VITALS: BP 150/86
[2017-09-12] VITALS: BP 143/80
[2017-09-12 04:00] VITALS: BP 140/74
[2017-09-12 05:28] LABS: HEMATOCRIT 24.4 % (42.0-52.0); HEMOGLOBIN 8.5 gm/dL (14.0-18.0); MCH 34.1 pg (26.0-34.0); MCHC 34.7 g/dL (28.0-37.0); MCV 98.2 fL (80.0-100.0); MPV 10.1 fl. (7.2-11.1); RBC 2.48 mil/uL (4.50-6.00); RDW-CV 18.9 % (10.5-14.5); WBC 6.3 thou/uL (4.0-11.0)
[2017-09-12 05:53] LABS: ALBUMIN 2.8 g/dL (3.4-5.0); MAGNESIUM 2.3 mg/dL (1.8-2.4); POTASSIUM 4.7 mmol/L (3.5-5.1); TOTAL BILIRUBIN 1.3 mg/dL (<0.1-1.0); TOTAL PROTEIN 5.9 g/dL (6.4-8.2)
[2017-09-12 05:55] LABS: CREATININE 6.1 mg/dL (0.6-1.3)
[2017-09-12 08:00] VITALS: BP 143/75
[2017-09-12 16:11] VITALS: BP 133/69
[2017-09-12 19:50] VITALS: BP 144/73
[2017-09-13] VITALS: BP 144/74
[2017-09-13 04:00] VITALS: BP 145/75
[2017-09-13 04:40] LABS: HEMATOCRIT 24.4 % (42.0-52.0); HEMOGLOBIN 8.4 gm/dL (14.0-18.0); MCH 34.3 pg (26.0-34.0); MCHC 34.5 g/dL (28.0-37.0); MCV 99.2 fL (80.0-100.0); MPV 11.4 fl. (7.2-11.1); RBC 2.46 mil/uL (4.50-6.00); RDW-CV 18.3 % (10.5-14.5); WBC 8.9 thou/uL (4.0-11.0)
[2017-09-13 06:24] LABS: ALBUMIN 2.7 g/dL (3.4-5.0); CALCIUM 8.8 mg/dL (8.5-10.1); CREATININE 7.4 mg/dL (0.6-1.3); MAGNESIUM 2.4 mg/dL (1.8-2.4); POTASSIUM 4.5 mmol/L (3.5-5.1); TOTAL PROTEIN 5.6 g/dL (6.4-8.2)
[2017-09-13 08:36] VITALS: BP 158/49
[2017-09-13 14:52] VITALS: BP 143/31
--- NOTE | 2017-09-13 15:33 | CON ---
[address] [address] CONSULTATION Name: GIOVANNAKARINA MORELAND Room: [address] IN M.R.#: [id number] Admission: 09/08/17 Attend Phys: Sami Kumar MD Discharge: Date of : 53 Report #: [id number] THIS REPORT FOR: //name// CC: Sami Grider DATE OF SERVICE: 09/08/2017 REQUESTING PHYSICIAN: Sami Kumar M.D. REASON FOR CONSULTATION: Assistance in providing dialysis. HISTORY OF PRESENT ILLNESS: The patient is a 62-year-old gentleman with end-stage renal disease, very well known to me. He is being dialyzed on Wednesday, Wednesday, and Wednesday schedule at [facility]. Last dialysis was on Wednesday. On Wednesday he had some abdominal pain, came to the Emergency Room at [facility], apparently was told that he probably had kidney stones, returned back to dialysis and had complete dialysis on Wednesday, presents with complaints of abdominal pain, epigastric in location, it radiates up and down, complaints of some blood with the urine. He had abdominal CT scan done here that revealed presence of changes that were suggestive of possible pancreatitis and also findings suggestive of diffuse colitis, cholelithiasis with mild gallbladder retention, possible cirrhosis, ascites, extensive calcification of his renal arteries, no evidence of renal stone, no evidence of hydronephrosis. He also has some small left pleural effusion with atelectasis and scarring in the posterior lower lung bilaterally. PAST MEDICAL HISTORY: 1. Significant for end-stage renal disease. 2. Severe cardiomyopathy with ejection fraction between 10-15%. 3. History of endocarditis. He was on antibiotics for a long time, but eventually cardiothoracic surgeon turned him down for the surgery due to his poor performance status. 4. History of anemia. 5. History of medical noncompliance. In the past, he used to gain a very large amount of fluid between dialysis, which changed recently. He has been compliant with his fluid restriction over the last several months. 6. He also has history of chronic atrial fibrillation, history of ventricular tachycardia at rest, and a past history of post-ICD placement, and history of diabetes mellitus type 2. PAST SURGICAL HISTORY: Placement of the IV fistula that is now nonfunctional, placement of tunneled dialysis catheter, ICD implant, cataract surgery. FAMILY HISTORY: [place] [address] CONSULTATION Name: GIOVANNAKARINA MORELAND Room: [address] IN [facility]#: [id number] Admission: 09/08/17 Attend Phys: Sami Kumar MD Discharge: Date of : 53 Report #: [id number] SOCIAL HISTORY: . No tobacco or alcohol abuse. MEDICATIONS: Prior to admission reviewed. REVIEW OF SYSTEMS: Positive for abdominal pain and weakness and some shortness of breath. PHYSICAL EXAMINATION: GENERAL: Awake, alert. VITAL SIGNS: Blood pressure is 91/60, heart rate is 70. Afebrile. HEENT: Pupils are round. NECK: Fatty. LUNGS: Decreased air movement bilaterally. CARDIOVASCULAR: Very distant heart tones. ABDOMEN: Soft, tender in the midline area. EXTREMITIES: With chronic stasis changes and some dry skin lesions over both his legs. LABORATORY DATA: Revealed serum sodium 136, potassium 5.3, chloride 90, CO2 is 10. BUN 110, creatinine 12.7 and lipase 2540. ASSESSMENT: A 62-year-old gentleman with end-stage renal disease, admitted what looks like with acute pancreatitis with severely elevated lipase and findings on CT scan suggestive of acute pancreatitis. PLAN: I will dialyze him today with no fluid removal. I would suggest consulting GI specialist. Thank you very much for asking my opinion on the patient. <ELECTRONICALLY SIGNED> By: Kia Fowler MD 09/13/17 1533 1542 [id number] Flowers MD /[facility]
[2017-09-13 20:09] VITALS: BP 143/56
[2017-09-13 23:38] VITALS: BP 145/62
[2017-09-14 04:00] VITALS: BP 144/65
[2017-09-14 05:06] LABS: HEMATOCRIT 23.7 % (42.0-52.0); HEMOGLOBIN 8.2 gm/dL (14.0-18.0); MCH 33.9 pg (26.0-34.0); MCHC 34.5 g/dL (28.0-37.0); MCV 98.2 fL (80.0-100.0); MPV 9.5 fl. (7.2-11.1); RBC 2.42 mil/uL (4.50-6.00); RDW-CV 18.1 % (10.5-14.5)
[2017-09-14 05:18] LABS: ALBUMIN 2.5 g/dL (3.4-5.0); CALCIUM 8.5 mg/dL (8.5-10.1); MAGNESIUM 2.2 mg/dL (1.8-2.4); POTASSIUM 4.1 mmol/L (3.5-5.1); TOTAL BILIRUBIN 1.2 mg/dL (<0.1-1.0); TOTAL PROTEIN 5.5 g/dL (6.4-8.2)
[2017-09-14 07:45] VITALS: BP 145/43
[2017-09-14 11:56] VITALS: BP 148/72
[2017-09-14 16:58] VITALS: BP 144/64
[2017-09-14 19:36] VITALS: BP 175/63
[2017-09-15] VITALS: BP 141/63
[2017-09-15 00:07] VITALS: BP 141/65
[2017-09-15 03:58] VITALS: BP 157/67
[2017-09-15 05:19] LABS: HEMATOCRIT 21.4 % (42.0-52.0); HEMOGLOBIN 7.4 gm/dL (14.0-18.0); MCHC 34.7 g/dL (28.0-37.0); MCV 98.1 fL (80.0-100.0); MPV 10.1 fl. (7.2-11.1); RBC 2.18 mil/uL (4.50-6.00)
[2017-09-15 05:47] LABS: ALBUMIN 2.4 g/dL (3.4-5.0); CALCIUM 8.6 mg/dL (8.5-10.1); MAGNESIUM 2.2 mg/dL (1.8-2.4); POTASSIUM 4.1 mmol/L (3.5-5.1); TOTAL BILIRUBIN 0.9 mg/dL (<0.1-1.0); TOTAL PROTEIN 5.4 g/dL (6.4-8.2)
[2017-09-15 05:48] LABS: CREATININE 6.9 mg/dL (0.6-1.3)
[2017-09-15 07:30] VITALS: BP 151/95
[2017-09-15] MEDS ORDERED: CORTEF5 MG PO (08:23)
[2017-09-15] MEDS ORDERED: MIDODRINE HCL 55 M1 PO (08:23)
[2017-09-15 13:23] VITALS: BP 151/95
[2017-09-15 15:10] VITALS: BP 145/73
--- NOTE | 2017-10-10 11:02 | CON ---
[address] [address] CONSULTATION Name: KARINA NORRIS Room: [address] IN M.R.#: [id number] Admission: 09/08/17 Attend Phys: Sami Kumar MD Discharge: 09/15/17 Date of : 53 Report #: [id number] THIS REPORT FOR: //name// CC: Sami Red DICTATED BY: Rufina Rand [facility] DATE OF SERVICE: 09/10/2017 PRIMARY CARE PHYSICIAN: Pippa Grider DO Please note at the time of this dictation, the patient was seen and physically examined by myself. REASON FOR CONSULTATION: Possible ischemic bowel, pancreatitis and elevated LFTs. HISTORY OF PRESENT ILLNESS: This is 62-year-old male who was discharged just a little over a week ago for medical induced hypotension. Since he has been home, he has been feeling weak and very lethargic with little appetite. He was found to be very hypoglycemic and was brought in for this. The patient is an insulin-dependent diabetic. However, he has missed several days of dialysis since Wednesday which was his last day of dialysis prior to admission. He had no associated fevers or chills that were noted. He was told that he had some kidney stones in the past in the Emergency Room over at [facility]. It is also noted that he has severe systolic congestive heart failure with last EF being noted at 25%. In talking to the because the patient is very sleepy and not willing to talk, states that he has never had an EGD or colonoscopy in the past. She also states that at one point he was set up to see a GI specialist. They said something regarding his liver, but she cannot recall. They did not like the individual that they saw over at [facility] and they never went back and she does not recall how long that has been. The patient has been taking dialysis for the last 5 years on Wednesday, Wednesday, Wednesday as well. In talking to the , she states he will go several days without a bowel movement and sometimes he does have to strain and he has mentioned to her he has noted some blood in his stools over the course of time. ALLERGIES: VANCOMYCIN. MEDICATIONS: From home include NovoLog, linezolid, prednisone, Eliquis, sodium bicarbonate, Nitrostat, Provigil. PAST MEDICAL HISTORY: End-stage renal disease, atrial fib and he is on Eliquis to cardiac arrest 2011, hypertension, renal failure, diabetic, [place] [address] CONSULTATION Name: KARINA NORRIS Room: [address]#: [id number] Admission: 09/08/17 Attend Phys: Sami Kumar MD Discharge: 09/15/17 Date of : 53 Report #: [id number] congestive heart failure with some aortic stenosis and mitral and tricuspid regurg. PAST SURGICAL HISTORY: ICD placed, fistula in the right arm, cataract surgery. FAMILY HISTORY: Negative for any GI or female cancers. SOCIAL HISTORY: He lives at home with his . Denies any alcohol, tobacco or illegal drug use. REVIEW OF SYSTEMS: Twelve-point review of systems is essentially negative except what is mentioned in the HPI. PHYSICAL EXAMINATION: VITAL SIGNS: Temperature 35.7, pulse 86 and very irregular, noted pacemaker that does not appear to be capturing, respirations 18, blood pressure 81/56. HEART: Irregular rate and rhythm. Murmur noted. ICD is in place. LUNGS: Diminished with a few very faint crackles. ABDOMEN: Soft, positive bowel sounds in all 4 quadrants with some generalized tenderness noted to palpation. PSYCHIATRIC: He is very lethargic and does not want to answer questions and the majority of the H and P was obtained from the . LABORATORY DATA: Sodium 141, potassium 4.6, chloride 98, CO2 20, BUN is 39, creatinine 6, GFR is 10. Glucose is 41. PT is 21.9, INR is 2.3. Lactic acid on admission today is 6.4, white count is 5.9, hemoglobin is 8.1, hematocrit 24.1 and platelets is 34. Total bilirubin on admission was normal and continues to be normal at 0.9, alkaline phosphatase 149 and has slightly been elevated in the past and today it is 135, ALT was normal on admission, yesterday was 173 and he has bumped up to 661 today and has been normal in the past admissions, AST again normal on admission, he was 476 yesterday, he has bumped up to 428. PT is 21.9, INR is 2.3. Lipase was 2540. He has bumped up to 18,091. CT of the abdomen and pelvis showed some fat stranding, mild diffuse circumferential mural thickening, perihepatic and perisplenic ascites and pelvic ascites, lobulation noted of the liver for cirrhosis. IMPRESSION: 1. Pancreatitis. 2. Elevated LFTs. 3. Colonic ischemia. 4. Constipation. 5. Cirrhosis noted on CT. 6. Anticoagulant therapy Eliquis secondary to atrial fibrillation and ICD with pacer. 7. Congestive heart failure with an EF of 25%. 8. End-stage renal disease, dialysis Wednesday, Wednesday and Wednesday. [address] [place] [address] CONSULTATION Name: KARINA NORRIS Room: [address] IN ..#: [id number] Admission: 09/08/17 Attend Phys: Sami Kumar MD Discharge: 09/15/17 Date of : 53 Report #: [id number] PLAN: 1. Ultrasound of the abdomen to more fully evaluate his ductal system since he is not a candidate for an MRCP. 2. Acute hepatitis panel. 3. We will recheck CBC and CMP, PT, INR and lipase in the a.m. 4. Need to obtain or discuss with Dr. Flowers or whoever, Nephrology that is seeing the patient today as to how high we can increase his fluids giving the elevation of his lipase in the pancreatitis, currently only has D10 at 50 an hour. 5. We will keep the patient n.p.o. except for ice. Thank you for allowing us to participate in this patient's care. Please do not hesitate to call with any questions in regard to this consult. ADDENDUM REFERRING PHYSICIAN: Sami Kumar MD I have seen and examined the patient and agree with the plan that has been outlined by our nurse practitioner, Rufina Rand. There is very little that is going to be able to be done because of the patient's severe cardiopulmonary problems and the like. The likely source of his pancreatitis is gallstones, but he is not a candidate for surgery secondary to multiple medical issues. He has suspected cirrhosis as well as portal hypertension of uncertain etiology. I doubt there is much that is going to be able to be done for him other than symptomatic support. He is certainly not going to be able to have surgery done at this facility. <ELECTRONICALLY SIGNED> By: Patricio Miranda DO 10/10/17 1102 1212 [id number] Miranda DO /nt
--- NOTE | 2017-10-10 11:02 | CON ---
[address] [address] CONSULTATION Name: JRSUKHDAPHNEYESTEFANI Marquez Room: [address] IN M.R.#: [id number] Admission: 09/08/17 Attend Phys: Sami Kumar MD Discharge: 09/15/17 Date of : 53 Report #: [id number] THIS REPORT FOR: //name// CC: Sami Grider DO DATE OF SERVICE: 09/10/2017 ADDENDUM: To job #[id number]. REFERRING PHYSICIAN: Sami Kumar MD I have seen and examined the patient and agree with the plan that has been outlined by our nurse practitioner, Rufina Rand. There is very little that is going to be able to be done because of the patient's severe cardiopulmonary problems and the like. The likely source of his pancreatitis is gallstones, but he is not a candidate for surgery secondary to multiple medical issues. He has suspected cirrhosis as well as portal hypertension of uncertain etiology. I doubt there is much that is going to be able to be done for him other than symptomatic support. He is certainly not going to be able to have surgery done at this facility. <ELECTRONICALLY SIGNED> By: Patricio Miranda DO 10/10/17 1102 1654 Asha Miranda DO /sivan
== END 2017-09-15 16:45 | disposition home or self-care (01) | DRG 441 ==
LOC: M.ERS 13:20 → M.2W 14:11 → M.TBA-ER 14:11 → M.2W 15:27
PROVIDERS: Family Medicine; Internal Medicine Nephrology; Nurse Practitioner Adult Health; ADMIT Internal Medicine
PROC: 30233N1 Transfusion of Nonautologous Red Blood Cells into Peripheral Vein, Percutaneous Approach (ICD-10-PCS; principal; 2017-09-11)
DX: K72.00 Acute and subacute hepatic failure without coma (principal); N18.6 End stage renal disease; K85.90 Acute pancreatitis without necrosis or infection, unspecified; I42.9 Cardiomyopathy, unspecified; K55.9 Vascular disorder of intestine, unspecified; B17.9 Acute viral hepatitis, unspecified; I50.22 Chronic systolic (congestive) heart failure; E87.2 Acidosis; D61.818 Other pancytopenia; K80.10 Calculus of gallbladder with chronic cholecystitis without obstruction; K56.7 Ileus, unspecified; E27.40 Unspecified adrenocortical insufficiency; I13.2 Hypertensive heart and chronic kidney disease with heart failure and with stage 5 chronic kidney disease, or end stage renal disease; R65.10 Systemic inflammatory response syndrome (SIRS) of non-infectious origin without acute organ dysfunction; E11.649 Type 2 diabetes mellitus with hypoglycemia without coma; E87.5 Hyperkalemia; I27.20 Pulmonary hypertension, unspecified; I48.2 Chronic atrial fibrillation; K59.00 Constipation, unspecified; K74.60 Unspecified cirrhosis of liver; I08.3 Combined rheumatic disorders of mitral, aortic and tricuspid valves; Z66 Do not resuscitate; R62.7 Adult failure to thrive; T44.4X5A Adverse effect of predominantly alpha-adrenoreceptor agonists, initial encounter; Y92.89 Other specified places as the place of occurrence of the external cause; Z91.15 Patient's noncompliance with renal dialysis; Z99.2 Dependence on renal dialysis; Z86.74 Personal history of sudden cardiac arrest; Z79.01 Long term (current) use of anticoagulants; Z79.4 Long term (current) use of insulin; Z95.810 Presence of automatic (implantable) cardiac defibrillator; Z79.899 Other long term (current) drug therapy; Z88.8 Allergy status to other drugs, medicaments and biological substances

== ENCOUNTER 2020-01-26 11:53 | Observation (INO) | payer MEDICARE, BC ==
[~2020-01-26] VITALS: Ht 190.5 cm; Wt 104.3 kg
[~2020-01-26 11:53] MED LIST changes: +CORTEF5 MG PO
[2020-01-26 12:05] VITALS: BP 113/74
[2020-01-26] MEDS ORDERED: DOXYCYCLINE 10100 M2 PO (12:10)
[2020-01-26] MEDS ORDERED: TOPROL XL25 MG PO (12:12)
[2020-01-26] MEDS ORDERED: DILTIAZEM ER120 M2 PO (12:12)
[2020-01-26] MEDS ORDERED: NEURONTIN100 MG PO (12:13)
[2020-01-26] MEDS ORDERED: B12 ACTIVE1000 MCG PO (12:13)
[2020-01-26] MEDS ORDERED: RENVELA0.8 GM PO (12:13)
[2020-01-26 13:21] LABS: ABSOLUTE EOSINOPHILS 0.2 thou/uL (0.0-0.7); ABSOLUTE LYMPHOCYTES 0.7 thou/uL (0.8-5.3); ABSOLUTE MONOCYTES 0.6 thou/uL (0.0-1.2); ABSOLUTE NEUTROPHILS 3.8 thou/uL (1.6-8.1); BASOPHILS 0.7 %; HEMATOCRIT 45.1 % (42.0-52.0); HEMOGLOBIN 14.9 gm/dL (14.0-18.0); LYMPHOCYTES 13.2 %; MCH 27.4 pg (26.0-34.0); MCHC 32.9 g/dL (28.0-37.0); MCV 83.1 fL (80.0-100.0); MONOCYTES 10.8 %; MPV 8.8 fl. (7.2-11.1); NUCLEATED RBCS 0 /100WBC; PLATELET COUNT* 113 thou/uL (150-400); POLYS 71.3 %; RBC 5.43 mil/uL (4.50-6.00); RDW-CV 16.4 % (10.5-14.5); WBC 5.3 thou/uL (4.0-11.0)
[2020-01-26 13:28] LABS: APTT 30.1 Seconds (25.0-31.3); CALCIUM 8.5 mg/dL (8.5-10.1); CREATININE 7.8 mg/dL (0.6-1.3); INR 1.2; PROTIME 12.5 Seconds (9.20-11.50)
[2020-01-26 13:39] LABS: ALBUMIN 3.7 g/dL (3.4-5.0); TOTAL BILIRUBIN 0.7 mg/dL (<0.1-1.0); TOTAL PROTEIN 8.4 g/dL (6.4-8.2)
--- NOTE | 2020-01-26 13:44 | EKG ---
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 <ELECTRONICALLY SIGNED> By: Jeff Gordon MD, [facility] 01/26/20 1343 1230 1230 Jeff Gordon MD, [facility] /EPI
[2020-01-26 18:00] VITALS: BP 113/64
[2020-01-26 18:40] VITALS: BP 111/74
--- NOTE | 2020-01-26 19:36 | NUR ---
PATIENT ARRIVED THIS EVENING PER CART TO 226 AT 1840. PATIENT IS ALERT AND ORIENTED X 4. HE DENIES PAIN. PATIENT PLACED ON TELE MONITOR. TELE SHOWS A FIB WITH A RATE OF 80 TO 110. VS TAKEN. REPORT GIVEN TO COUNCIL MEMBER. SPOKE WITH DR ROA REGARDING PATIENT. PATIENT IS TO DIALYIZE IN THE AM.
[2020-01-26 19:50] VITALS: BP 102/72
[2020-01-27] VITALS: BP 107/44
[2020-01-27 04:00] VITALS: BP 103/59
--- NOTE | 2020-01-27 05:24 | NUR ---
PT CARE ASSUMED AT 1930. SAT MAINTAINED IN RA. ALERT AND ORIENTED X4. DENIES PAIN AND SOB. CALL LIGHT WITHIN REACH AND BED IN LOW POSITION. HOURLY ROUNDING DONE FOR PT SAFETY.
[2020-01-27 05:49] LABS: HEMOGLOBIN 14.9 gm/dL (14.0-18.0); MCH 27.2 pg (26.0-34.0); MCV 82.3 fL (80.0-100.0); MPV 8.7 fl. (7.2-11.1); RBC 5.47 mil/uL (4.50-6.00); RDW-CV 16.9 % (10.5-14.5)
[2020-01-27 05:53] LABS: CALCIUM 8.7 mg/dL (8.5-10.1); POTASSIUM 5.6 mmol/L (3.5-5.1)
[2020-01-27 06:04] LABS: CREATININE 9.3 mg/dL (0.6-1.3)
[2020-01-27 08:43] VITALS: BP 107/72
[2020-01-27] MEDS ORDERED: METOPROLOL TART25 MG PO (09:35)
[2020-01-27 12:00] VITALS: BP 113/61
--- NOTE | 2020-01-27 13:21 | NUR ---
PT OFF UNIT TO DIALYSIS REPORT GIVEN TO SUPERVISOR REWORK.
[2020-01-27 14:55] VITALS: BP 113/61
--- NOTE | 2020-01-27 18:26 | NUR ---
DISCONTINUE IV AND TELEMETRY. PT UNSDERSTANDS ALL FOLLOW UP ORDER. WILL DISCHARGE TO HOME VIA PRIVATE VEHICLE.
--- NOTE | 2020-01-28 12:29 | CON ---
[address] [address] CONSULTATION Name: KARINA NORRIS Room: [address] Katlyn Mascorro#: [id number] Admission: 01/26/20 Attend Phys: Jenn Odonnell MD Discharge: 01/27/20 Date of : 53 Report #: [id number] THIS REPORT FOR: //name// cc: Pippa Grider Tara DO ~ THIS REPORT FOR: //name// CC: Jenn Grider DATE OF SERVICE: 01/27/2020 REQUESTING PHYSICIAN: Dr. Gordon. REASON FOR CONSULTATION: Hyperkalemia in a patient with end-stage renal disease. HISTORY OF PRESENT ILLNESS: The patient was sent to the Emergency Room yesterday after the dialysis center noted that he had hyperkalemia. The patient did have dialysis yesterday and went home. Creatinine today is 5.6, so he will get another dialysis before he will be discharged. MEDICAL HISTORY: 1. End-stage renal disease. 2. Coronary artery disease. 3. Ischemic cardiomyopathy. 4. Chronic atrial fibrillation. 5. History of hypertension, hypotensive now. 6. Diabetes mellitus type 2. FAMILY HISTORY: Noncontributory. SOCIAL HISTORY: No tobacco, no alcohol abuse. REVIEW OF SYSTEMS: Feels good today, wanted to go home; yesterday, was confused. Denies shortness of breath, chest pain, fever, chills, no nausea, no vomiting, no diarrhea. PHYSICAL EXAMINATION: GENERAL: Awake, alert, oriented, no acute distress. VITAL SIGNS: Vitals reviewed and stable. HEENT: Pupils round. NECK: Fatty. LUNGS: Decreased air movements. CARDIOVASCULAR: Irregular rate. ABDOMEN: Soft. [address] [address] CONSULTATION Name: ALTON NORRISESTEFANI Marquez Room: [address] Katlyn Mascorro#: [id number] Admission: 01/26/20 Attend Phys: Jenn Odonnell MD Discharge: 01/27/20 Date of : 53 Report #: [id number] LOWER EXTREMITIES: No edema. ASSESSMENT: 1. End-stage renal disease. 2. Atrial fibrillation. 3. Hypertension. 4. Diabetes mellitus type 2. 5. History of endocarditis, resolved now. PLAN: Dialysis today and he could be discharged to home after dialysis. <ELECTRONICALLY SIGNED> By: Jose Luis Flowers MD 01/28/20 1229 1205 [id number] Flowers MD /nt
--- NOTE | 2020-01-28 13:45 | CON ---
[address] [address] CONSULTATION Name: KARINA NORRIS Room: [address] Katlyn Mascorro#: [id number] Admission: 01/26/20 Attend Phys: Jenn Odonnell MD Discharge: 01/27/20 Date of : 53 Report #: [id number] THIS REPORT FOR: //name// cc: Pippa Grider Tara DO THIS REPORT FOR: //name// CC: Jenn Grider DO DATE OF SERVICE: 01/27/2020 CARDIOLOGY CONSULTATION HISTORY OF PRESENT ILLNESS: The patient is a 64-year-old [place] who I was asked to see in the hospital today after he was noted to be in atrial fibrillation. The patient has an extensive and past medical history. Unfortunately, not all of his records are available here. He states in 2011, he had a cardiac arrest and has been followed by Dr. Jamil at [facility] since that time. He apparently had a heart catheterization that showed no significant coronary artery disease. He had an ICD implanted. The ICD apparently has never shocked his heart. He also has a history of atrial fibrillation and has been chronically anticoagulated with Eliquis. He denies a previous cardioversion. Seven years ago, he developed end-stage renal disease secondary to hypertension. He has been on hemodialysis since that time. He goes Wednesday, and Wednesday. He has had multiple fistulas in the past because of clotting. He has not missed any recent dialysis. He stays very active and denies any recent chest pain, shortness of breath, palpitations, syncope or peripheral edema or fever. Yesterday, his potassium was noted to be elevated. He was told to come to the hospital and be admitted. He denied any nausea, vomiting, diarrhea or bleeding. PAST MEDICAL HISTORY: He has had no major surgical procedure. He does have a history of hypertension, diabetes. He has had previous cataract extraction. MEDICATIONS: Consist of digoxin, midodrine for low blood pressure, Eliquis, insulin, metoprolol, diltiazem, Neurontin. ALLERGIES: HE HAS AN ALLERGY TO VANCOMYCIN. FAMILY HISTORY: His mother had heart disease. SOCIAL HISTORY: He is . He and his are both from [place]. He moved to [place] when he was 5 years old. He uses a walker. 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 Quit smoking years ago[place] [address] CONSULTATION Name: KARINA NORRIS Room: [address]#: [id number] Admission: 01/26/20 Attend Phys: Jenn Odonnell MD Discharge: 01/27/20 Date of : 53 Report #: [id number] REVIEW OF SYSTEMS: He apparently had a stroke involving his left leg, now uses a walker. No history of asthma, liver disease, GI bleeding, chronic skin condition, psychiatric illness. PHYSICAL EXAMINATION: GENERAL: Reveals a middle-aged male who appeared in no distress. VITAL SIGNS: He had a blood pressure of 100/60, pulse is 100. He was afebrile. HEENT: He was anicteric. Conjunctivae pink. Mucous membranes moist. NECK: Veins do not appear distended. No carotid bruits. CHEST: Clear to auscultation. CARDIOVASCULAR: Irregular rhythm, grade 2 systolic ejection murmur. ABDOMEN: Soft. EXTREMITIES: Had no pitting edema. SKIN: Cool and dry. NEUROLOGIC: Nonfocal. RADIOLOGICAL DATA: His ECG when he arrived in the Emergency Room last night showed atrial fibrillation with an increased ventricular response rate. His workup, he had an echocardiogram done here in 2018 at [facility] that showed an ejection fraction of only 30%, left ventricular hypertrophy, left atrial and right atrial enlargement. There is evidence of a small pericardial effusion. There is also evidence of at least mild aortic stenosis with a peak gradient across the aortic valve in 2018 of 8 mmHg. His chest x-ray in the Emergency Room last night showed cardiomegaly, pacemaker in place, some atelectasis, no pulmonary edema. LABORATORY WORK: Sodium 133, potassium 5.6, creatinine 9.3, his alkaline phosphatase 233. His troponin 0.06. BNP 26,299. His white blood cell count 6.0, hemoglobin 14.9. IMPRESSION AND RECOMMENDATIONS: 1. Permanent atrial fibrillation. The patient has been on digoxin, metoprolol and diltiazem for rate control. I would continue anticoagulation with low dose Eliquis. 2. History of cardiomyopathy. The patient is on a beta oneal and digoxin. Apparently, he is not on an ARB or ELIU inhibitor because of his chronic kidney disease. Blood pressure too low for hydralazine and nitrates. 3. End-stage renal disease. The patient is on hemodialysis. 4. Previous stroke with left leg hemiplegia. 5. Diabetes. [place] [address] CONSULTATION Name: KARINA NORRIS Room: [address] Katlyn Mascorro#: [id number] Admission: 01/26/20 Attend Phys: Jenn Odonnell MD Discharge: 01/27/20 Date of : 53 Report #: [id number] 6. Mild aortic stenosis. 7. Previous implantation of defibrillator. No recent discharges. <ELECTRONICALLY SIGNED> By: Jeff Gordon MD, [facility] 01/28/20 1345 0907 [id number] Gordon MD, [facility] /nt
== END 2020-01-27 18:08 | disposition home or self-care (01) ==
LOC: M.ERS 11:53 → M.TBA-ER 13:58 → M.2W 13:58 → M.TBA-ER 13:58 → M.2W 18:26
PROVIDERS: Family Medicine; ADMIT Internal Medicine; ATTEND Internal Medicine
DX: I48.20 Chronic atrial fibrillation, unspecified (principal); E87.5 Hyperkalemia; I13.2 Hypertensive heart and chronic kidney disease with heart failure and with stage 5 chronic kidney disease, or end stage renal disease; E11.22 Type 2 diabetes mellitus with diabetic chronic kidney disease; N18.6 End stage renal disease; I50.20 Unspecified systolic (congestive) heart failure; Z99.2 Dependence on renal dialysis; Z79.4 Long term (current) use of insulin; Z79.01 Long term (current) use of anticoagulants; Z86.73 Personal history of transient ischemic attack (TIA), and cerebral infarction without residual deficits; I42.9 Cardiomyopathy, unspecified

== ENCOUNTER 2020-05-15 22:57 | Inpatient (IN) | payer MEDICARE, BC ==
[~2020-05-15] VITALS: Ht 190.5 cm; Wt 98.0 kg
[~2020-05-15 22:57] MED LIST changes: +B12 ACTIVE1000 MCG PO; +DILTIAZEM ER120 M2 PO; +DOXYCYCLINE 10100 M2 PO; +METOPROLOL TART25 MG PO; +NEURONTIN100 MG PO; +RENVELA0.8 GM PO
[2020-05-15 23:08] VITALS: BP 181/143
[2020-05-15 23:22] LABS: ABSOLUTE LYMPHOCYTES 0.5 thou/uL (0.8-5.3); ABSOLUTE MONOCYTES 0.5 thou/uL (0.0-1.2); ABSOLUTE NEUTROPHILS 2.9 thou/uL (1.6-8.1); BASOPHILS 0.8 %; EOSINOPHILS 0.5 %; HEMATOCRIT 45.4 % (42.0-52.0); HEMOGLOBIN 15.3 gm/dL (14.0-18.0); LYMPHOCYTES 12.2 %; MCH 28.5 pg (26.0-34.0); MCHC 33.8 g/dL (28.0-37.0); MCV 84.5 fL (80.0-100.0); MONOCYTES 13.3 %; MPV 9.4 fl. (7.2-11.1); NUCLEATED RBCS 0 /100WBC; PLATELET COUNT* 73 thou/uL (150-400); POLYS 73.2 %; RBC 5.38 mil/uL (4.50-6.00); RDW-CV 17.8 % (10.5-14.5)
[2020-05-15 23:33] LABS: ANION GAP 16 mmol/L (7-16); BUN 79 mg/dL (7-18); CALCIUM 6.8 mg/dL (8.5-10.1); CHLORIDE 90 mmol/L (98-107); CO2 24 mmol/L (21-32); CREATININE 13.2 mg/dL (0.6-1.3); GLUCOSE 90 mg/dL (70-99); POTASSIUM 5.9 mmol/L (3.5-5.1); SODIUM 130 mmol/L (136-145)
[2020-05-15 23:36] LABS: APTT 41.1 Seconds (25.0-31.3); INR 1.4; PROTIME 14.7 Seconds (9.20-11.50)
[2020-05-15 23:44] LABS: ALBUMIN 3.5 g/dL (3.4-5.0); ALKALINE PHOSPHATASE 170 U/L (46-116); NT-PRO BRAIN NAT PEPTIDE > 35000 pg/mL (<300); SGOT 16 U/L (15-37); SGPT 12 U/L (30-65); TOTAL BILIRUBIN 0.9 mg/dL (<0.1-1.0); TOTAL PROTEIN 7.5 g/dL (6.4-8.2)
[2020-05-16] VITALS (30 sets, daily range): BP systolic 83–140; BP diastolic 36–104
--- NOTE | 2020-05-16 11:40 | EKG ---
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1955 Requested By: Javier Lynch Order Number: [id number] MD: Jeff Gordon Measurements Intervals [place] Rate: 122 P: [place]: QRS: -9 QRSD: 107 T: 204 QT: 343 QTc: 489 Interpretive Statements Atrial fibrillation Low voltage, extremity leads Nonspecific T abnormalities, lateral leads Borderline prolonged QT interval Compared to ECG 01/26/2020 12:30:15 Myocardial infarct finding no longer present Electronically Signed On 05-16-2020 11:40:30 CDT by Jeff Gordon [email or web address] <ELECTRONICALLY SIGNED> By: Jeff Gordon MD, [facility]ACC 05/16/20 1140 2257 2257 Jeff Gordon MD, [facility]ACC /EPI
--- NOTE | 2020-05-16 16:16 | 2DMMODE ---
[place] [address] 2 D/M-MODE ECHOCARDIOGRAM Name: GIOVANNAKARINA MORELAND Room: [address] ADM IN [place].#: [id number] Admission: 05/16/20 Attend Phys: Federico Bender Discharge: Date of : 53 Date of Service: 05/16/20 1615 Report #: [id number] THIS REPORT FOR: cc: Pippa Grider,Pippa Sales,Jeff Kwon MD [facility] ~ APPROVED REPORT Study performed: 05/16/2020 14:29:53 EXAM: Comprehensive 2D, Doppler, and color-flow Echocardiogram Patient Location: Bedside BSA: 2.29 HR: 111 bpm BP: 102/44 mmHg Other Information Study Quality: Adequate Indications Non STEMI Pacemaker Covid Positive 2D Dimensions IVSd: 8.80 (7-11mm) LVOT Diam: 18.53 (18-24mm) LVDd: 64.25 mm PWd: 10.59 (7-11mm) Ascending Ao: 38.82 (22-36mm) LVDs: 57.70 (25-40mm) Aortic Root: 28.83 mm Volumes Left Atrial Volume (Systole) LA ESV Index: 31.80 mL/m2 Aortic Valve AoV Peak Feliberto.: 1.48 m/s AO Peak Gr.: 8.78 mmHg LVOT Max P.24 mmHg AO Mean Gr.: 4.65 mmHg LVOT Mean P.05 mmHg LVOT Max V: 0.75 m/s AO V2 VTI: 21.47 cm LVOT Mean V: 0.47 m/s MIGUEL ANGEL (VTI): 1.35 cm2 LVOT V1 VTI: 10.[place] [address] 2 D/M-MODE ECHOCARDIOGRAM Name: KARINA NORRIS Room: [address] IN ..#: [id number] Admission: 05/16/20 Attend Phys: Federico Bender Discharge: Date of : 53 Date of Service: 05/16/20 1615 Report #: [id number] Mitral Valve E/A Ratio: 3.31 MV Decel. Time: 108.70 ms MV E Max Feliberto.: 0.77 m/s MV PHT: 31.52 ms MVA (PHT): 6.98 cm2 Pulmonary Valve PV Peak Feliberto.: 0.87 m/s PV Peak Gr.: 3.04 mmHg Tricuspid Valve RAP Estimate: 5.00 mmHg TR Peak Gr.: 33.85 mmHg RVSP: 38.85 mmHg PA Pressure: 38.85 mmHg Left Ventricle Left ventricle is dilated. There is global hypokinesis of the left ventricle. There is normal left ventricular wall thickness. Left ventricular systolic function is severely decreased. LVEF is 15-20%. Right Ventricle Right ventricle is dilated. The right ventricular systolic function is normal. Pacemaker lead is present in the right ventricle. Atria Left atrium is mildly dilated. Interatrial septum not well visualized. Right atrium is dilated. Aortic Valve Aortic valve is calcified. No aortic regurgitation is present. Mild aortic stenosis. Mitral Valve The mitral valve is normal in structure. Mild mitral annular calcification. There is trace mitral valve regurgitation noted. No evidence of mitral valve stenosis. Tricuspid Valve The tricuspid valve is normal in structure. Mild tricuspid regurgitation. estimated pa pressure 35 mm Hg Pulmonic Valve The pulmonary valve is normal in structure. There is no pulmonic [place] [address] 2 D/M-MODE ECHOCARDIOGRAM Name: KARINA NORRIS Room: [address] IN [facility]#: [id number] Admission: 05/16/20 Attend Phys: Federico Bender Discharge: Date of : 53 Date of Service: 05/16/20 1615 Report #: [id number] Great Vessels The aortic root is normal in size. The ascending aorta is borderline dilated. Aortic arch is not visualized. IVC is not visualized. Pericardium Trace pericardial effusion. <Conclusion> Left ventricle is dilated. LVEF is 15-20%. Left atrium is mildly dilated. Mild aortic stenosis. <ELECTRONICALLY SIGNED> By: Jeff Gordon MD, FACC 05/16/20 161 14 14 Jeff Gordon MD, FAC /INF
[2020-05-17] VITALS (19 sets, daily range): BP systolic 83–167; BP diastolic 51–137
[2020-05-18 05:11] LABS: ALBUMIN 3.3 g/dL (3.4-5.0); CALCIUM 7.2 mg/dL (8.5-10.1); CREATININE 12.4 mg/dL (0.6-1.3); POTASSIUM 5.7 mmol/L (3.5-5.1); TOTAL BILIRUBIN 0.7 mg/dL (<0.1-1.0); TOTAL PROTEIN 7.1 g/dL (6.4-8.2)
[2020-05-18] MEDS ORDERED: ZITHROMAX250 MG PO (10:15)
[2020-05-18] MEDS ORDERED: AUGMENTIN 875-1 EACH PO (10:15)
[2020-05-18] MEDS ORDERED: LANOXIN125 MCG PO (10:15)
[2020-05-18] MEDS ORDERED: DECADRON6 MG PO (10:27)
[2020-05-18 11:52] VITALS: BP 93/54
[2020-05-20 17:53] VITALS: BP 93/54
== END 2020-05-18 13:18 | disposition home or self-care (01) | DRG 177 ==
LOC: M.ERS 22:57 → M.TBA-ER 05-16 01:02 → M.ICU 05-16 01:02 → M.2W 05-17 18:54
PROVIDERS: Family Medicine; Registered Nurse; ADMIT Internal Medicine; ATTEND Internal Medicine
PROC: 5A1D70Z Performance of Urinary Filtration, Intermittent, Less than 6 Hours Per Day (ICD-10-PCS; principal; 2020-05-18)
DX: U07.1 COVID-19 (principal); J12.89 Other viral pneumonia; N18.6 End stage renal disease; I50.23 Acute on chronic systolic (congestive) heart failure; I21.4 Non-ST elevation (NSTEMI) myocardial infarction; J96.00 Acute respiratory failure, unspecified whether with hypoxia or hypercapnia; I13.2 Hypertensive heart and chronic kidney disease with heart failure and with stage 5 chronic kidney disease, or end stage renal disease; I48.20 Chronic atrial fibrillation, unspecified; I42.8 Other cardiomyopathies; E87.1 Hypo-osmolality and hyponatremia; E87.5 Hyperkalemia; E11.22 Type 2 diabetes mellitus with diabetic chronic kidney disease; D69.6 Thrombocytopenia, unspecified; E53.8 Deficiency of other specified B group vitamins; I08.3 Combined rheumatic disorders of mitral, aortic and tricuspid valves; Z98.49 Cataract extraction status, unspecified eye; Z79.4 Long term (current) use of insulin; Z79.899 Other long term (current) drug therapy; Z79.01 Long term (current) use of anticoagulants; Z88.8 Allergy status to other drugs, medicaments and biological substances; Z86.73 Personal history of transient ischemic attack (TIA), and cerebral infarction without residual deficits; Z99.2 Dependence on renal dialysis; Z88.1 Allergy status to other antibiotic agents

== ENCOUNTER 2020-05-28 18:38 | Inpatient (IN) | payer MEDICARE, BC ==
[~2020-05-28] VITALS: Ht 190.5 cm; Wt 100.2 kg
[~2020-05-28 18:38] MED LIST changes: +AUGMENTIN 875-1 EACH PO; +DECADRON6 MG PO; +LANOXIN125 MCG PO; +ZITHROMAX250 MG PO
[2020-05-28 18:52] VITALS: BP 131/71
[2020-05-28 19:36] LABS: HEMATOCRIT 44.4 % (42.0-52.0); HEMOGLOBIN 14.6 gm/dL (14.0-18.0); MCHC 32.9 g/dL (28.0-37.0); MPV 8.1 fl. (7.2-11.1); NUCLEATED RBCS 0 /100WBC; PLATELET COUNT* 106 thou/uL (150-400); RBC 5.22 mil/uL (4.50-6.00); RDW-CV 16.9 % (10.5-14.5); WBC 6.8 thou/uL (4.0-11.0)
[2020-05-28 19:48] LABS: CALCIUM 8.6 mg/dL (8.5-10.1); CREATININE 12.3 mg/dL (0.6-1.3); POTASSIUM 5.6 mmol/L (3.5-5.1)
[2020-05-28 19:52] LABS: ALBUMIN 2.4 g/dL (3.4-5.0); TOTAL BILIRUBIN 1.6 mg/dL (<0.1-1.0)
[2020-05-28 20:24] LABS: ABSOLUTE EOSINOPHILS 0.1 thou/uL (0.0-0.7); ABSOLUTE LYMPHOCYTES 0.1 thou/uL (0.8-5.3); ABSOLUTE MONOCYTES 0.3 thou/uL (0.0-1.2); ABSOLUTE NEUTROPHILS 6.4 thou/uL (1.6-8.1)
[2020-05-28 20:25] LABS: ANISOCYTOSIS 1+; PLATELET ESTIMATE DECREASED
[2020-05-28 20:26] LABS: LARGE PLATELETS RARE
[2020-05-28 21:52] VITALS: BP 120/70
[2020-05-29] VITALS: BP 133/70
[2020-05-29 04:00] VITALS: BP 124/70
[2020-05-29 08:30] VITALS: BP 119/65
--- NOTE | 2020-05-29 10:21 | EKG ---
[place] [address] ELECTROCARDIOGRAM REPORT Name: KARINA NORRIS Room: [address] ADM [place] .R.#: [id number] Admission: 05/28/20 Attend Phys: Marcelino Bal, Discharge: Date of : 53 Date of Service: 05/28/202007 Report #: [id number] THIS REPORT FOR: //name// 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
[2020-05-29 12:00] VITALS: BP 103/68
[2020-05-29 16:00] VITALS: BP 108/77
[2020-05-29 20:51] VITALS: BP 127/73
[2020-05-30] VITALS: BP 112/63
[2020-05-30 04:00] VITALS: BP 107/62
[2020-05-30 04:32] LABS: ABSOLUTE EOSINOPHILS 0.1 thou/uL (0.0-0.7); ABSOLUTE LYMPHOCYTES 0.2 thou/uL (0.8-5.3); ABSOLUTE MONOCYTES 0.4 thou/uL (0.0-1.2); ABSOLUTE NEUTROPHILS 4.9 thou/uL (1.6-8.1); BASOPHILS 0.3 %; EOSINOPHILS 0.9 %; HEMATOCRIT 41.6 % (42.0-52.0); HEMOGLOBIN 13.6 gm/dL (14.0-18.0); LYMPHOCYTES 3.3 %; MCH 27.6 pg (26.0-34.0); MCHC 32.8 g/dL (28.0-37.0); MCV 84.1 fL (80.0-100.0); MONOCYTES 7.2 %; MPV 8.1 fl. (7.2-11.1); NUCLEATED RBCS 0 /100WBC; PLATELET COUNT* 99 thou/uL (150-400); POLYS 88.3 %; RBC 4.95 mil/uL (4.50-6.00); RDW-CV 17.2 % (10.5-14.5); WBC 5.6 thou/uL (4.0-11.0)
[2020-05-30 05:22] LABS: CALCIUM 8.5 mg/dL (8.5-10.1); PHOSPHORUS* 5.7 mg/dL (2.5-4.9); POTASSIUM 5.2 mmol/L (3.5-5.1)
[2020-05-30 05:35] LABS: CREATININE 9.4 mg/dL (0.6-1.3)
[2020-05-30 08:00] VITALS: BP 127/75
[2020-05-30 12:00] VITALS: BP 132/78
[2020-05-30] MEDS ORDERED: CEFDINIR300 MG PO (13:04)
[2020-05-30 14:07] VITALS: BP 127/75
== END 2020-05-30 15:08 | disposition home or self-care (01) | DRG 177 ==
LOC: M.ERS 18:38 → M.2W 20:03 → M.TBA-ER 20:03 → M.2W 21:51
PROVIDERS: Internal Medicine Nephrology; Physician Assistant; ADMIT Internal Medicine; ATTEND Internal Medicine
PROC: 5A1D70Z Performance of Urinary Filtration, Intermittent, Less than 6 Hours Per Day (ICD-10-PCS; principal; 2020-05-29)
DX: U07.1 COVID-19 (principal); J15.6 Pneumonia due to other Gram-negative bacteria; N18.6 End stage renal disease; I50.21 Acute systolic (congestive) heart failure; J96.01 Acute respiratory failure with hypoxia; J12.89 Other viral pneumonia; I13.2 Hypertensive heart and chronic kidney disease with heart failure and with stage 5 chronic kidney disease, or end stage renal disease; E11.22 Type 2 diabetes mellitus with diabetic chronic kidney disease; D64.9 Anemia, unspecified; I48.91 Unspecified atrial fibrillation; I10 Essential (primary) hypertension; Z98.49 Cataract extraction status, unspecified eye; Z88.1 Allergy status to other antibiotic agents; I25.2 Old myocardial infarction; Z79.899 Other long term (current) drug therapy

== ENCOUNTER 2020-06-03 06:58 | Emergency (ER) | payer MEDICARE, BC ==
[~2020-06-03] VITALS: Ht 190.5 cm; Wt 96.6 kg
[~2020-06-03 06:58] MED LIST changes: +CEFDINIR300 MG PO
[2020-06-03] MEDS ORDERED: CARAFATE1 GM PO (07:46)
[2020-06-03 08:01] LABS: ABSOLUTE LYMPHOCYTES 0.5 thou/uL (0.8-5.3); ABSOLUTE MONOCYTES 0.8 thou/uL (0.0-1.2); ABSOLUTE NEUTROPHILS 4.6 thou/uL (1.6-8.1); BASOPHILS 0.5 %; EOSINOPHILS 0.1 %; HEMATOCRIT 34.7 % (42.0-52.0); HEMOGLOBIN 11.1 gm/dL (14.0-18.0); LYMPHOCYTES 8.2 %; MCH 27.6 pg (26.0-34.0); MCHC 32.1 g/dL (28.0-37.0); MCV 86.1 fL (80.0-100.0); MONOCYTES 13.6 %; MPV 8.2 fl. (7.2-11.1); NUCLEATED RBCS 0 /100WBC; PLATELET COUNT* 100 thou/uL (150-400); POLYS 77.6 %; RBC 4.03 mil/uL (4.50-6.00); RDW-CV 16.3 % (10.5-14.5); WBC 5.9 thou/uL (4.0-11.0)
[2020-06-03 08:04] LABS: CALCIUM 7.4 mg/dL (8.5-10.1); CREATININE 8.9 mg/dL (0.6-1.3)
[2020-06-03 08:09] LABS: ALBUMIN 2.1 g/dL (3.4-5.0); TOTAL PROTEIN 6.4 g/dL (6.4-8.2)
[2020-06-03 09:40] VITALS: BP 120/69
== END 2020-06-03 09:41 | disposition home or self-care (01) ==
LOC: M.ERS 06:58
PROVIDERS: Personal Emergency Response Attendant
DX: R04.0 Epistaxis (principal)